=== PATIENT | male | born 1960 | race Hispanic/Latino ===

== ENCOUNTER 2017-11-03 10:47 | Emergency (ER) | payer OTHER ==
[~2017-11-03 10:47] MED LIST: MEDROL DOSEPAK1 PAC PO
--- NOTE | 2017-11-03 11:01 | ED GENERAL ADULT ---
History of Present Illness General Chief Complaint: Lower Extremity Problems Stated Complaint: PAIN AND SWELLING IN BOTH EXTREMMITYS Source: patient Exam Limitations: no limitations Vital Signs & Intake/Output Vital Signs & Intake/Output Vital Signs Date Time Temp Pulse Resp B/P B/P Pulse O2 O2 Flow FiO2 Mean Ox Delivery Rate 11/03 1303 98.0 98 18 114/56 96 11/03 1054 98.6 106 18 134/79 99 Room Air Allergies Coded Allergies: pollen extracts (UNKNOWN 11/03/17) oxycodone (NAUSEA 11/03/17) Reconcile Medications Clindamycin HCl (Cleocin HCl) 300 MG CAPSULE 1 CAP PO TID CELLULITIS Methylprednisolone. (Medrol) 1 PAC PAC 1 PAC PO DAILY INFLAMMATION USE DIRECTED Prednisone (Deltasone) 20 MG TABLET 3 TAB PO DAILY CONTACT DERMATITIS Triage Note: 57M WITH SWELLING AND REDNESS TO BLE, ADMITS TO WORKING IN THE [employer] AND NOTICED IT SUNDAY AFTERNOON. SINCE THEN IT HAS GOTTEN WORSE AND ASCENDED UP LEGS AND INTO ARMS. WENT TO WALK IN AND PRESCRIBED KEFLEX, PREDNISONE AND HAS BEEN USING OTC HYDROCORTISONE CREAM BUT SYMPTOMS WORSENING. +ITCHING. AFEBRILE Triage Nurses Notes Reviewed? yes Onset: Abrupt Duration: day(s): Timing: recent history HPI: 11/03/17 57-year-old male presents to the emergency department for bilateral lower extremity swelling. The left is worse than the right. He says that he's had a rash and has been diagnosed with contact dermatitis and was put on prednisone. The erythema and swelling increased and so he was subsequently put on antibiotics. Now he comes in with ongoing symptoms particularly swelling in the left lower extremity. He denies any chest pain fever or other complaints. His only significant past medical history is for right knee meniscus surgery. Past History Travel History Traveled to [place] past 21 day No Medical History Any Pertinent Medical History? 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 No Review of Systems Review of Systems Constitutional: Denies: fever. EENTM: Denies: visual changes. Respiratory: Denies: short of breath. Cardiovascular: Denies: chest pain. GI: Denies: abdominal pain. Genitourinary: Reports: no symptoms. Musculoskeletal: Reports: see HPI. Skin: Reports: no symptoms. Neurological/Psychological: Reports: no symptoms. Hematologic/Endocrine: Reports: no symptoms. Immunologic/Allergic: Reports: no symptoms. Physical Exam Physical Exam General Appearance: well developed/nourished, alert, awake, anxious, mild distress Head: atraumatic, normal appearance Eyes: Bilateral: normal appearance, PERRL, EOMI. Ears, Nose, Throat: normal pharynx, normal ENT inspection Neck: normal inspection, supple, full range of motion Respiratory: normal breath sounds, chest non-tender, no respiratory distress Cardiovascular: regular rate/rhythm Peripheral Pulses: 3+ dorsalis pedis (R), 3+ dorsalis pedis (L) Gastrointestinal: soft, non-tender Back: normal range of motion Extremities: pedal edema Neurologic/Psych: no motor/sensory deficits, awake, alert, oriented x 3 Skin: rash Comments: Physical exam is unremarkable other than significant swelling to the left lower extremity. He also has erythema that is highly pruritic, on the left lower extremity, the right lower extremity, and both elbows. The rash is consistent with contact dermatitis most likely poison annamaria. Core Measures ACS in differential dx? No CVA/TIA Diagnosis: No Sepsis Present: No Sepsis Focused Exam Completed? No (y) Progress Differential Diagnoses I considered the following diagnoses in my evaluation of the patient: [Contact dermatitis, cellulitis, DVT] Plan of Care: Orders Procedure Date/time Status Saline Lock 11/03 112 Active D-DIMER 11/03 1125 Complete COMPREHENSIVE METABOLIC PANEL 11/03 1125 Complete CBC WITHOUT DIFFERENTIAL 11/03 1125 Complete Current Medications Sig/Fletcher Start time Last Medication Dose Stop Time Status Admin Clindamycin 300 MG ONCE ONE 11/03 1130 CAN (Cleocin) 11/03 1131 Laboratory Tests 11/03/17 1145: Anion Gap 8, Estimated GFR > 60, BUN/Creatinine Ratio 18.8, Glucose 113 H, Calcium 9.2, Total Bilirubin 0.6, AST 57, ALT 104 H, Alkaline Phosphatase 82, Total Protein 7.0, Albumin 4.2, Globulin 2.8, Albumin/Globulin Ratio 1.5, D- Dimer High Sensitivty 487 H, CBC w Diff MAN DIFF ORDERED, RBC 5.35, MCV 92.9, MCH 31.3 H, MCHC 33.7, RDW 13.2, MPV 8.1, Gran % 86.9 H, Lymphocytes % 8.2 L, Monocytes % 2.9, Eosinophils % 1.7, Basophils % 0.3, Absolute Granulocytes 11.2 H, Absolute Lymphocytes 1.1 L, Absolute Monocytes 0.4, Absolute Eosinophils 0.2 , Absolute Basophils 0, Platelet Estimate VERIFIED BY SMEAR, Normocytic RBCs VERIFIED, Normochromic RBCs VERIFIED Initial ED EKG: none Departure Departure Disposition: HOME OR SELF CARE Condition: Stable Clinical Impression Primary Impression: Contact dermatitis Secondary Impressions: Cellulitis Referrals: Duarte Dukes DO (PCP/Family) Departure Forms: Customer Survey General Discharge Information Prescriptions: Current Visit Scripts Prednisone (Deltasone) 3 TAB PO DAILY #9 TAB Clindamycin HCl (Cleocin HCl) 1 CAP PO TID #30 CAP Comments Labs unremarkable other than moderate leukocytosis, an elevated d-dimer. Ultrasound negative for DVT. He has no shortness of breath or chest pain. He was given IV Solu-Medrol and IV clindamycin. He will follow-up in the ED in 24 hours for reevaluation. PATIENT: JOYCELYN NAJERA PRESENT AGE: 57 PATIENT ACCOUNT NO: [id number] : 60 LOCATION: [facility] ORDERING PHYSICIAN: Porter He DO SERVICE DATE: 11/03/17 EXAM TYPE: US - US-DUPLEX VENOUS EXTREM UNI US TRIPLEX LOWER EXTREMITY, LEFT CLINICAL INFORMATION: Swelling left lower extremity. COMPARISON: None available. TECHNIQUE: Color-flow triplex imaging with spectral analysis and compression Doppler were performed on the left lower extremity. FINDINGS: Respiratory variation, normal compression and augmented flow are noted throughout the lower extremity. The visualized common femoral vein, superficial femoral vein, profunda femoral vein, popliteal vein and midcalf peroneal and posterior tibial venous segments show no evidence of deep venous thrombosis. There is no Carreno's cyst. IMPRESSION: No evidence of deep venous thrombosis involving the left lower extremity. DICTATED BY: Porter Hardy MD DATE/TIME DICTATED:11/03/171246 TALENT DEVELOPMENT ANALYST:PATRICIA DATE/TIME TRANSCRIBED:11/03/171246 CONFIDENTIAL, DO NOT COPY WITHOUT APPROPRIATE AUTHORIZATION. <Electronically signed in Other Vendor System> SIGNED BY: Porter Hardy MD 11/03/17 3265 Resident Co-Sign Statement Statement: ED Attending supervision documentation- [] I saw and evaluated the patient. I have also reviewed all the pertinent lab results and diagnostic results. I agree with the findings and the plan of care as documented in the Resident's documentation. [] I have reviewed the ED Record and agree with the Resident's documentation. [] Additions or exceptions (if any) to the Resident's note and plan are summarized below: [] Critical Care Note Critical Care Note Critical Care Time: non-applicable
[2017-11-03 12:01] LABS: ABSOLUTE BASOPHIL COUNT 0 /CUMM (0.0-0.2); ABSOLUTE EOSINOPHIL COUNT 0.2 /CUMM (0.0-0.7); ABSOLUTE GRANULOCYTE CT 11.2 /CUMM (1.4-6.5); ABSOLUTE LYMPH COUNT 1.1 /CUMM (1.2-3.4); ABSOLUTE MONOCYTE COUNT 0.4 /CUMM (0.10-0.60); BASOPHIL % 0.3 % (0.0-2.0); EOSINOPHIL % 1.7 % (0-5); GRANULOCYTE % 86.9 % (42.2-75.2); HEMATOCRIT 49.7 % (42-52); MEAN CORPUSCULAR HGB 31.3 PG (27.0-31.0); MEAN CORPUSCULAR HGB CONC 33.7 G/DL (33.0-37.0); MEAN CORPUSCULAR VOLUME 92.9 FL (80.0-94.0); MEAN PLATELET VOLUME 8.1 FL (7.4-10.4); PLATELET COUNT 254 /CUMM (130-400); RBC DISTRIBUTION WIDTH 13.2 % (11.5-14.5); RED BLOOD CELL CT 5.35 /CUMM (4.70-6.10); WHITE BLOOD CELL COUNT 12.9 /CUMM (4.8-10.8)
--- NOTE | 2017-11-03 12:52 | ULTRASOUND REPORT ---
US TRIPLEX LOWER EXTREMITY, LEFT CLINICAL INFORMATION: Swelling left lower extremity. COMPARISON: None available. TECHNIQUE: Color-flow triplex imaging with spectral analysis and compression Doppler were performed on the left lower extremity. FINDINGS: Respiratory variation, normal compression and augmented flow are noted throughout the lower extremity. The visualized common femoral vein, superficial femoral vein, profunda femoral vein, popliteal vein and midcalf peroneal and posterior tibial venous segments show no evidence of deep venous thrombosis. There is no Carreno's cyst. IMPRESSION: No evidence of deep venous thrombosis involving the left lower extremity.
[2017-11-03 13:03] VITALS: BP 114/56
[2017-11-03] MEDS ORDERED: DELTASONE20 MG PO (13:31)
[2017-11-03] MEDS ORDERED: CLEOCIN HCL300 M1 PO (13:31)
== END 2017-11-03 13:39 ==
LOC: ERH 10:47
PROVIDERS: Emergency Medicine
DX: L25.9 Unspecified contact dermatitis, unspecified cause (principal); L03.116 Cellulitis of left lower limb
CPT/HCPCS: 96374; 96375; J2930

== ENCOUNTER 2017-11-06 11:14 | Emergency (ER) | payer OTHER ==
[~2017-11-06] VITALS: Ht 167.6 cm; Wt 93.0 kg
[~2017-11-06 11:14] MED LIST changes: +CLEOCIN HCL300 M1 PO; +DELTASONE20 MG PO
[2017-11-06 11:33] VITALS: BP 121/78
--- NOTE | 2017-11-06 11:45 | ED GENERAL ADULT ---
History of Present Illness General Chief Complaint: Suture Removal/Wound Recheck Stated Complaint: WOUND CHECK Source: patient Exam Limitations: no limitations Vital Signs & Intake/Output Vital Signs & Intake/Output Vital Signs Date Time Temp Pulse Resp B/P B/P Pulse O2 O2 Flow FiO2 Mean Ox Delivery Rate 11/06 1133 97.8 101 16 121/78 96 Room Air Allergies Coded Allergies: pollen extracts (UNKNOWN 11/04/17) oxycodone (NAUSEA 11/04/17) Reconcile Medications Clindamycin HCl (Cleocin HCl) 300 MG CAPSULE 1 CAP PO TID CELLULITIS Methylprednisolone. (Medrol) 1 PAC PAC 1 PAC PO DAILY INFLAMMATION USE DIRECTED Prednisone (Deltasone) 20 MG TABLET 3 TAB PO DAILY CONTACT DERMATITIS Triage Note: RECEIVED 57 YO MALE RETURNS TODAY FOR WOUND CHECK. PT WAS HERE SUNDAY AND SUNDAY FOR RASH/REDNESS TO LEFT LOWER EXTREMITY. PT RETURNS FOR RE-EVALUATION Triage Nurses Notes Reviewed? yes Onset: Gradual Duration: day(s): Timing: improving HPI: 57-year-old male with a history of hyperlipidemia presenting for wound recheck. Patient was seen in the emergency department 3 days ago and diagnosed with contact dermatitis with secondary superimposed cellulitis to his bilateral lower extremities with left greater than right. He was started on clindamycin and prednisone. Patient had return to the emergency department 24 hours later for wound recheck, at which time his symptoms were significantly improving. Patient was instructed to return in 2 days for a second wound check. Returns today and reports significant improvement in his symptoms. Denies fevers, nausea, vomiting. Has continued to take his clindamycin and prednisone that he was prescribed. (Neeta Villalba) Past History Travel History Traveled to [place] past 21 day No Medical History Any Pertinent Medical History? 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 No (Neeta Villalba) Review of Systems Review of Systems Constitutional: Reports: no symptoms. EENTM: Reports: no symptoms. Respiratory: Reports: no symptoms. Cardiovascular: Reports: no symptoms. GI: Reports: no symptoms. Genitourinary: Reports: no symptoms. Musculoskeletal: Reports: no symptoms. Skin: Reports: see HPI. Neurological/Psychological: Reports: no symptoms. Hematologic/Endocrine: Reports: no symptoms. Immunologic/Allergic: Reports: no symptoms. All Other Systems: Reviewed and Negative (Neeta Villalba) Physical Exam Physical Exam General Appearance: well developed/nourished, no apparent distress, alert, awake , comfortable Comments: Gen.: Well-nourished, well-developed, no acute distress. Head: Normocephalic, atraumatic. Eyes: Normal inspection bilaterally Ears: Normal inspection bilaterally Nose: Normal inspection Neck: Normal inspection Lungs: clear to auscultation bilaterally, normnal breath sounds Heart: regular rate and rhythm Abdomen: soft and non-tender Extremities: Normal inspection Neurologic: alert and oriented x3, steady gait Skin: warm and dry, diffuse erythema to the bilateral lower extremities that begins about mid calf and extends down to the feet, no edema, no lesions or drainage Psychiatric: Normal mood and affect, no apparent delusions or hallucinations, behavior appropriate Core Measures ACS in differential dx? No CVA/TIA Diagnosis: No Sepsis Present: No Sepsis Focused Exam Completed? No (Neeta Villalba) Progress Differential Diagnoses I considered the following diagnoses in my evaluation of the patient: [Contact dermatitis versus cellulitis, low concern for abscess versus sepsis versus necrotizing fasciitis] Plan of Care: Patient seen and evaluated by Dr. He as this is the provider who saw him during his previous 2 visits. The patient and Dr. He both states that his cellulitis and contact dermatitis look significantly better. He will continue his clindamycin and prednisone. He will follow-up with Dr. norris his PMD for reevaluation. Given strict return precautions. Initial ED EKG: none (Neeta Villalba) Departure Departure Disposition: HOME OR SELF CARE Condition: Stable Clinical Impression Primary Impression: Cellulitis Secondary Impressions: Contact dermatitis, Encounter for wound re-check Referrals: Duarte Dukes DO (PCP/Family) Additional Instructions: Continue taking prednisone and clindamycin as prescribed. Follow-up with your primary care provider for reevaluation. Return to the emergency department for any new or worsening symptoms. Departure Forms: Customer Survey General Discharge Information (Neeta Villalba) PA/STORE OPERATIONS MANAGER Co-Sign Statement Statement: ED Attending supervision documentation- [X] I saw and evaluated the patient. I have also reviewed all the pertinent lab results and diagnostic results. I agree with the findings and the plan of care as documented in the PA's/STORE OPERATIONS MANAGER's documentation. [] I have reviewed the ED Record and agree with the PA's/STORE OPERATIONS MANAGER's documentation. [] Additions or exceptions (if any) to the PAs/STORE OPERATIONS MANAGER's note and plan are summarized below: [] (Neri CISNEROS,Porter Pascual) Critical Care Note Critical Care Note Critical Care Time: non-applicable (Neeta Villalba)
== END 2017-11-06 11:48 ==
LOC: ERH 11:14
DX: L03.115 Cellulitis of right lower limb (principal); L03.116 Cellulitis of left lower limb; L25.9 Unspecified contact dermatitis, unspecified cause; Z48.01 Encounter for change or removal of surgical wound dressing
CPT/HCPCS: 99282